=== PATIENT | male | born 1945 | race Caucasian/White ===

== ENCOUNTER → 2016-10-28 09:05 | Outpatient (CLI) | payer MEDICARE, BC ==
[2012-12-20 18:16] VITALS: BMI 29.4
[~2016-10-28 09:05] MED LIST: BACTRIM DS TABL1 TAB PO; FLEXERIL10 MG PO; FLOMAX0.4 MG PO; HYDROCHLOROTH12.5 M1 PO; NORCO 10/325 TA1 TA1 PO; PHENERGAN25 M1 PO; PREDNISONE10 MG PO; SPIRIVA18 MCG INH
== END | disposition home or self-care (01) ==
LOC: D.NM 09:05
DX: C61 Malignant neoplasm of prostate (principal)

== ENCOUNTER → 2017-03-03 09:32 | Outpatient (CLI) | payer MEDICARE, BC ==
[2012-12-20 18:16] VITALS: BMI 29.4
== END | disposition home or self-care (01) ==
LOC: D.CT 09:30
DX: C61 Malignant neoplasm of prostate (principal)

== ENCOUNTER → 2019-04-29 17:38 | Outpatient (CLI) | payer MEDICARE, BC ==
[2012-12-20 18:16] VITALS: BMI 29.4
== END | disposition home or self-care (01) ==
LOC: D.LABREF 17:38
PROVIDERS: ATTEND Orthopaedic Surgery
DX: M19.012 Primary osteoarthritis, left shoulder (principal)

== ENCOUNTER 2019-04-30 16:19 | Inpatient (IN) | payer MEDICARE, BC ==
[~2019-04-30] VITALS: Ht 170.2 cm; Wt 79.4 kg
[~2019-04-30 16:19] MED LIST changes: +CYCLOBENZAPRINE10 MG PO; -FLEXERIL10 MG PO
[2019-05-11] MEDS ORDERED: INCRUSE ELLI62.5 MCG INH (15:22)
[2019-05-11] MEDS ORDERED: [UNRECOGNIZED DRUG - OTHER] (15:37)
[2019-05-11] MEDS ORDERED: FERROUS SULFAT325 MG PO (15:37)
[2019-05-11] MEDS ORDERED: POTASSIUM99 M1 PO (15:38)
[2019-05-12 13:43] LABS: APPEARANCE CLEAR (CLEAR); BILIRUBIN NEGATIVE (NEGATIVE); COLOR DK YELLOW (YELLOW); GLUCOSE NEGATIVE (NEGATIVE); KETONE NEGATIVE (NEGATIVE); NITRITE NEGATIVE (NEGATIVE); PROTEIN TRACE mg/dL (NEGATIVE)
[2019-05-12 13:44] LABS: BACTERIA FEW /hpf (NEGATIVE); EPITHELIAL CELLS 0-5 /hpf (0-5); MUCUS >1+ /lpf (NONE SEEN); RED CELLS - URINE 0-5 /hpf (0-5); WHITE CELLS - URINE RARE /hpf (NEGATIVE)
[2019-05-21] VITALS (11 sets, daily range): BP systolic 92–128; BP diastolic 51–583; BMI 28.2; BMI 27.4
[2019-05-21 08:46] LABS: CALC OSMOLALITY 278 mosm/kg (275-300); CALCIUM 9.3 mg/dL (8.5-10.1); CARBON DIOXIDE 24.9 mmol/L (21.0-32.0); CHLORIDE - SERUM 105 mmol/L (98-107); GLUCOSE 99 mg/dL (74-106); POTASSIUM - SERUM 4.1 mmol/L (3.5-5.1); SODIUM 139 mmol/L (136-145); UREA NITROGEN 14 mg/dL (7-18); eGFR NON AFRICAN AMERICAN 77 mL/min (90-120)
[2019-05-21 08:48] LABS: INR 1.03 (0.85-1.17)
[2019-05-21 08:49] LABS: APTT 32.6 SECONDS (22.8-39.4)
[2019-05-21 09:35] LABS: BASOPHILS 0.2 % (0-2); EOSINOPHILS 2.6 % (0-7); HEMATOCRIT 33.2 % (42.0-54.0); HEMOGLOBIN 10.5 g/dL (13.5-17.5); IMMATURE GRANULOCYTES 0.2 % (0-5); LYMPHOCYTES 10.7 % (15-50); MCH 26.2 pg (26.0-34.0); MCHC 31.6 g/dL (31.0-37.0); MCV 82.8 fL (80.0-100.0); MEAN PLATELET VOLUME 8.7 fL (7.4-10.4); MONOCYTES 12.1 % (2-11); NEUTROPHILS 74.2 % (40-80); PLATELET COUNT 342 10x3/uL (130-400); RBC 4.01 10x6/uL (4.20-6.10); RDW 17.7 % (11.5-14.5); WBC 5.8 10x3/uL (4.8-10.8)
--- NOTE | 2019-05-21 11:30 | NUR ---
LEG WAS PREPED FROM HIP TO TOE
--- NOTE | 2019-05-21 13:45 | NUR ---
PT ARRIVES TO ROOM VIA BED TRANSPORTED BY RECOVERY STAFF. PT IS SLEEPY BUT AROUSABLE FOR SHORT PERIODS OF TIME. VSS. SEE FLOWSHEET. DRESSING TO LEFT KNEE IS CDI. SCD TO RIGHT LEG IS ON AND WORKING. BED ALARM IS ON AND WORKING. RESPIRATIONS ARE EVEN AND UNLABORED. PT IS AAO X 4 WHEN AROUSED. PT IS SLURRED WHEN ANSWERING QUESTIONS. INCENTIVE SPIROMETER AT BEDSIDE. BED IS IN THE LOWEST POSITION. CALL LIGHT AND BEDSIDE TABLE ARE WITHIN REACH. SIDE RAILS X 2. PT DENIES FURTHER NEEDS. FREQUENT VITALS SET UP. BED ALARM IS ON. WILL CONT TO MONITOR.
--- NOTE | 2019-05-21 18:23 | NUR ---
PT WITHOUT VOID SINCE COMING TO FLOOR FROM PROCEDURE. BLADDER SCAN SHOWS 94ML. PT TO CONTINUE TO ATTEMPT TO VOID.
--- NOTE | 2019-05-21 18:30 | NUR ---
CPM ON LEFT KNEE. PT TOLERATING WELL. BED IS IN THE LOWEST POSITION. CALL LIGHT AND BEDSIDE TABLE ARE WITHIN REACH. SIDE RAILS X 2. BED ALARM IS ON AND WORKING. PT DENIES FURTHER NEEDS. PT ENCOURAGED TO USE INCENTIVE SPRIOMETER.
--- NOTE | 2019-05-21 20:00 | NUR ---
A&O X 4, SUPINE IN BED CPM TO LEFT LEG IN USE, PT DENIES PAIN/DISCOMFORT AT THIS TIME, WILL CONTINUE TO MONITOR.
--- NOTE | 2019-05-21 22:34 | OP ---
PATIENT NAME: DARIELA COX MEDICAL RECORD: [id number] :43 LOCATION:D[address] [id number] ADMISSION DATE:05/21/19 SURGEON: SONY PEREZ DO DATE OF OPERATION: 05/21/2019 PROCEDURE PERFORMED: Left total knee arthroplasty. PREOPERATIVE DIAGNOSIS: Severe jwca-xn-udee left knee osteoarthritis. POSTOPERATIVE DIAGNOSIS: Severe tlrb-gt-duhv left knee osteoarthritis. INDICATIONS: Mr. Cox is a 73-year-old male who has tried all manner of nonoperative treatment including injections for his knee pain and he got tired of dealing with it as it has affected his activities of daily living and he was informed of the risks including infection, bleeding, damage to nerves or vessels, need for further surgery, failure of the implant, continued knee pain, fracture, mechanical failure, bleeding, blood clots, and even . He signed a consent. SURGEON: Sony Perez DO DESCRIPTION OF PROCEDURE: The patient was taken to the operative suite, after given a block by anesthesia in the preoperative area, he was laid in the supine position, given general anesthetic and LMA was placed. Two grams Ancef and 80 mg gentamicin and 1 gram of TXA was given to the patient. The left lower extremity was then prepped and draped in sterile fashion. Timeout was performed and everybody was in agreeance as to the correct side, site, patient, and procedure and then marked out an incision on the anterior knee, covered with Ioban. Careful dissection was made down through the incision to the capsule. The capsule was then opened with a medial parapatellar approach. Part of the fat pad was removed and the patella was milled down to fit a prosthesis and the knee was then flexed up and the femoral canal was entered with a drill and the distal femur was cut. Once the distal femur was cut, the proximal tibia was exposed and cut and this was removed. This knee was then brought to extension with lamina labor crew supervisor and [employer]ock used to remove any excess bone and the menisci medially and laterally. The knee was then flexed up after that and #10 extension block fit very easily. The knee was then flexed up and the femur was measured to be #60. 4-in-1 cutting block was then used, an angela wing was ensured no notching and the chamfer cuts were made on the femur. The trial was then put on the patella and it was floated and ranged and rotation was marked. I then drilled the lug holes for the femur and the holes for the patella. We then exposed the tibia and put in a 71 tray. This was reamed and punched and extra holes put in the tibia for the cement. Cement was then mixed. Tibia had been irrigated. Cement was placed on the tibia and on the implant, impacted into place. Excess cement was removed. The femur was then impacted on, once the femur was impacted on, the poly was put in between, the knee was brought to extension and the holes of the patella were cleaned out and it was put on the implant, it was squeezed and held into place. We then irrigated the knee and then the Betadine, povidone-iodine solution was poured in the knee and set for 3 minutes, the cement dried. Once the cement was dried, the knee was irrigated again with a liter and a half of normal saline. I then sized the poly up to an #18. This had good balance medial and lateral varus and valgus stability and flexion and extension. The tobramycin and vancomycin powder were then put in as well as Flavia and the patient was given another gram of TXA. OPERATIVE REPORT [id number] DARIELA COX The capsule was then closed with #2 Ethibond in a znlclf-pd-ckgbz fashion. Skin was closed with 2-0 Vicryl in an inverted interrupted fashion and ZipLine placed on the knee. This was covered with Adaptic, 4 x 4s, ABD, Webril, Martin wrap, and ETHEL hose stocking placed up to the knee. The patient was awakened and taken to the recovery again in stable condition. Blood loss was approximately 200 mL. COMPLICATIONS: None. TRANSINT:[id number] Voice Confirmation ID: [id number] DOCUMENT ID: [id number] SONY PEREZ DO at 2239 CC: [id number] DICTATION DATE: 05/21/19 1251 LACE FINISHER: 05/21/19 2220 ADM IN [facility] [place] [id number] [place] [address]
[2019-05-22] VITALS: BP 101/63
--- NOTE | 2019-05-22 01:59 | NUR ---
I have reviewed this patient and I concur with the Shift Assessment completed by the Licensed Practical Nurse today this shift.
[2019-05-22 04:00] VITALS: BP 110/60
[2019-05-22 06:33] LABS: BASOPHILS 0 % (0-2); EOSINOPHILS 0 % (0-7); HEMATOCRIT 30.2 % (42.0-54.0); HEMOGLOBIN 9.5 g/dL (13.5-17.5); IMMATURE GRANULOCYTES 0.2 % (0-5); LYMPHOCYTES 3.2 % (15-50); MCH 26.2 pg (26.0-34.0); MCHC 31.5 g/dL (31.0-37.0); MCV 83.4 fL (80.0-100.0); MEAN PLATELET VOLUME 8.8 fL (7.4-10.4); MONOCYTES 9.1 % (2-11); NEUTROPHILS 87.5 % (40-80); PLATELET COUNT 303 10x3/uL (130-400); RBC 3.62 10x6/uL (4.20-6.10); RDW 17.7 % (11.5-14.5)
[2019-05-22 06:48] LABS: WBC 10.4 10x3/uL (4.8-10.8)
[2019-05-22 07:18] LABS: ALBUMIN 3.2 g/dL (3.4-5.0); ALKALINE PHOSPHATASE 59 U/L (46-116); ALT (SGPT) 18 U/L (10-68); BILIRUBIN - TOTAL 0.17 mg/dL (0.2-1.3); CALC OSMOLALITY 277 mosm/kg (275-300); CALCIUM 8.4 mg/dL (8.5-10.1); CARBON DIOXIDE 23.5 mmol/L (21.0-32.0); CHLORIDE - SERUM 104 mmol/L (98-107); GLUCOSE 125 mg/dL (74-106); POTASSIUM - SERUM 4.4 mmol/L (3.5-5.1); PROTEIN - SERUM 6.7 g/dL (6.4-8.2); SODIUM 138 mmol/L (136-145); UREA NITROGEN 15 mg/dL (7-18); eGFR NON AFRICAN AMERICAN 77 mL/min (90-120)
[2019-05-22 09:01] VITALS: BP 104/61
[2019-05-22 12:48] VITALS: Ht 170.2 cm; Wt 79.4 kg
[2019-05-22 13:02] VITALS: BP 103/69
--- NOTE | 2019-05-22 14:27 | NUR ---
PT REPORTING RESTING PAIN OF 1/10. INCREASES TO 7/10 WITH MOVEMENT.
[2019-05-22 16:49] VITALS: BP 161/98
[2019-05-22 20:00] VITALS: BP 145/63
[2019-05-23] VITALS: BP 131/77
--- NOTE | 2019-05-23 01:09 | NUR ---
WATHCING TV QUEITLY WITH NO DISTRESS NOTED.RESP UNALBORED WITH CLIGHT IN REACH. NO COMPLAINTS BVOICED. CL INR EACH
--- NOTE | 2019-05-23 03:42 | NUR ---
I have reviewed this patient and I concur with the Shift Assessment completed by the Licensed Practical Nurse today this shift.
[2019-05-23 04:00] VITALS: BP 109/68
[2019-05-23 06:15] LABS: ALBUMIN 2.6 g/dL (3.4-5.0); ALKALINE PHOSPHATASE 49 U/L (46-116); ALT (SGPT) 14 U/L (10-68); CALC OSMOLALITY 276 mosm/kg (275-300); CALCIUM 7.9 mg/dL (8.5-10.1); CARBON DIOXIDE 22.4 mmol/L (21.0-32.0); CHLORIDE - SERUM 106 mmol/L (98-107); CREATININE - SERUM 0.9 mg/dL (0.6-1.3); GLUCOSE 97 mg/dL (74-106); POTASSIUM - SERUM 3.9 mmol/L (3.5-5.1); SODIUM 138 mmol/L (136-145); UREA NITROGEN 14 mg/dL (7-18); eGFR NON AFRICAN AMERICAN 87 mL/min (90-120)
[2019-05-23 06:20] LABS: BASOPHILS 0.1 % (0-2); EOSINOPHILS 0.3 % (0-7); HEMATOCRIT 26.6 % (42.0-54.0); HEMOGLOBIN 8.2 g/dL (13.5-17.5); IMMATURE GRANULOCYTES 0.3 % (0-5); LYMPHOCYTES 5.6 % (15-50); MCH 25.6 pg (26.0-34.0); MCHC 30.8 g/dL (31.0-37.0); MCV 83.1 fL (80.0-100.0); MEAN PLATELET VOLUME 8.8 fL (7.4-10.4); MONOCYTES 13.7 % (2-11); PLATELET COUNT 310 10x3/uL (130-400); RDW 17.8 % (11.5-14.5); WBC 8.6 10x3/uL (4.8-10.8)
--- NOTE | 2019-05-23 07:13 | NUR ---
PATIENT WATCHING TV THIS AM WITH CPM MACHINE ON, TO BE TAKEN OFF AT 0845. IV TO THE LEFT AC IS SALINE LOCKED. 1 LPM OF O2 IS NOTED. PATIENT WITH NO COMPLAINTS OF PAIN AT THIS TIME. BED IS IN LOW POSITION AND CALL LIGHT IS IN REACH. PT WITH NO NEEDS AT THIS TIME
[2019-05-23 08:42] VITALS: BP 136/77
[2019-05-23 13:44] VITALS: BP 151/87
[2019-05-23 17:48] VITALS: BP 142/56
[2019-05-23 19:30] VITALS: BP 98/63
--- NOTE | 2019-05-23 20:00 | NUR ---
LYING IN BED. ALERT AND ORIENTED X4. C/O PAIN IN RT KNEE RATING 5. CPM ON AT THIS TIME. DRSG TO LT KNEE IS C/D/I. ETHEL HOSE IN USE BILAT. RESP EVEN AND NONLABORED. O2 @ 2LNC. ENCOURAGED USE OF I.S. SON AT BEDSIDE. REQUESTS PAIN MED. SR ELEVATED X2. CL IN REACH.
--- NOTE | 2019-05-23 20:10 | NUR ---
MEDICATED WITH ULTRAM FOR C/O PAIN IN LT KNEE. CL IN REACH.
[2019-05-24 00:30] VITALS: BP 102/66
--- NOTE | 2019-05-24 01:26 | NUR ---
RESTING IN BED WITH EYES CLOSED. RESP EVEN AND NONLABORED. NO DISTRESS. CL IN REACH.
[2019-05-24 05:01] VITALS: BP 100/64
[2019-05-24 05:25] LABS: BASOPHILS 0.1 % (0-2); EOSINOPHILS 0.9 % (0-7); HEMATOCRIT 25.3 % (42.0-54.0); HEMOGLOBIN 7.9 g/dL (13.5-17.5); IMMATURE GRANULOCYTES 0.1 % (0-5); LYMPHOCYTES 6.1 % (15-50); MCH 25.7 pg (26.0-34.0); MCHC 31.2 g/dL (31.0-37.0); MCV 82.4 fL (80.0-100.0); MEAN PLATELET VOLUME 8.8 fL (7.4-10.4); MONOCYTES 15.1 % (2-11); NEUTROPHILS 77.7 % (40-80); PLATELET COUNT 321 10x3/uL (130-400); RBC 3.07 10x6/uL (4.20-6.10); WBC 7.4 10x3/uL (4.8-10.8)
[2019-05-24 06:05] LABS: ALBUMIN 2.6 g/dL (3.4-5.0); ALKALINE PHOSPHATASE 58 U/L (46-116); ALT (SGPT) 15 U/L (10-68); BILIRUBIN - TOTAL 0.35 mg/dL (0.2-1.3); CALC OSMOLALITY 277 mosm/kg (275-300); CALCIUM 7.9 mg/dL (8.5-10.1); CARBON DIOXIDE 23.8 mmol/L (21.0-32.0); CHLORIDE - SERUM 106 mmol/L (98-107); CREATININE - SERUM 0.9 mg/dL (0.6-1.3); GLUCOSE 95 mg/dL (74-106); POTASSIUM - SERUM 3.4 mmol/L (3.5-5.1); SODIUM 140 mmol/L (136-145); UREA NITROGEN 10 mg/dL (7-18); eGFR NON AFRICAN AMERICAN 87 mL/min (90-120)
[2019-05-24 08:05] VITALS: BP 110/73
[2019-05-24] MEDS ORDERED: DILAUDID4 MG PO (08:20)
[2019-05-24] MEDS ORDERED: VISTARIL50 MG PO (08:20)
[2019-05-24] MEDS ORDERED: BAYER CHEWABLE81 MG PO (08:21)
[2019-05-24] MEDS ORDERED: FERROUS SULFAT325 MG PO (08:21)
[2019-05-24] MEDS ORDERED: KEFLEX500 MG PO (08:21)
--- NOTE | 2019-05-24 09:38 | NUR ---
PT SITTING UP IN CHAIR AT BEDSIDE. RESP EVEN AND UNLABORED. DENIES PAIN AT THIS TIME. DRESSING TO LEFT LOWER EXTREMITY C/D/I, ETHEL HOSE ON BILATERALLY. SALINE LOC TO LEFT AC. SITE WITHOUT REDNESS OR EDEMA. DENIES FURTHER NEEDS AT THIS TIME. CL WITHIN REACH. ENCOURAGED TO CALL WITH NEEDS. CONTINUE POC
--- NOTE | 2019-05-24 12:39 | MORECARE ---
CASE MANAGEMENT DISCHARGE SUMMARY PATIENT: DARIELA ANTHONY UNIT: [id number] ADM DATE: 05/21/19 AGE: 74 : 44 SEX: M ROOM/BED: D.2209 AUTHOR: DAVINA AUSTIN PHYSICIAN: REFERRING PHYSICIAN: JHONNY PEREZ DO DATE OF SERVICE: 05/24/19 Discharge Plan Patient Name: DARIELA ANTHONY [facility] [facility] 1945 Planned Disposition: Home Health Service Anticipated Discharge Date: Discharge Date: Expected LOS: Initial Reviewer: [email or web address] Initial Review Date: 05/21/2019 Generated: 05/24/19 1:38 pm DCPIA - Discharge Planning Initial Assessment Updated by [email or web address]: Becki Jean on 05/24/19 12:35 pm * Is the patient Alert and Oriented? Yes * How many steps to enter\exit or inside your home? * PCP MARLENE * Pharmacy [facility] * Preadmission Environment Home Alone * ADLs Independent * Equipment Cane Rolling Walker Walker * Other Equipment CPM ICE MACHINE * List name and contact numbers for known caregivers / representatives who currently or will assist patient after discharge: SABINE ANTHONY (SON) [phone] * Verbal permission to speak to the caregivers and representatives has been obtained from the patient. N/A * Community resources currently utilized None * Additional services required to return to the preadmission environment? Yes * Has this patient been hospitalized within the prior 30 days at any hospital? No Patient Name: DARIELA ANTHONY Page 00130 at 1239 All edits/amendments must be made on the electronic document DICTATION DATE: 05/24/19 1238 BARGE ENGINEER: VERONICA 05/24/19 1238 RPT#: [id number] DC DATE: STATUS: ADM IN [facility] [address] [place] [address] END OF REPORT
[2019-05-24 12:45] VITALS: BP 116/79
--- NOTE | 2019-05-24 12:46 | MORECARE ---
CASE MANAGEMENT DISCHARGE SUMMARY PATIENT: DARIELA ANTHONY UNIT: [id number] ADM DATE: 05/21/19 AGE: 74 : 44 SEX: M ROOM/BED: D.2209 AUTHOR: DAVINA AUSTIN PHYSICIAN: REFERRING PHYSICIAN: JHONNY PEREZ DO DATE OF SERVICE: 05/24/19 Discharge Plan Patient Name: DARIELA ANTHONY Facility: [facility]:[place] : 1945 Planned Disposition: Home Health Service Anticipated Discharge Date: Discharge Date: Expected LOS: Initial Reviewer: [email or web address] Initial Review Date: 05/21/2019 Generated: 05/24/19 1:46 pm Comments DCP- Discharge Planning Updated by [email or web address]: Becki Jean on 05/24/19 11:[address] Patient Name: DARIELA ANTHONY Admission Status: Elective Accout number: [id number] Admission Date: 05-21-2019 : 1945 Admission Diagnosis: Attending: JHONNY PEREZ Current LOS: 3 Anticipated DC Date: Planned Disposition: Home Health Service Primary Insurance: MEDICARE A & B Discharge Planning Comments: CM met with patient to complete initial dc planning assessment. CM educated patient on the CM role and verbal consent given by patient to complete assessment. Patient lives at home by himself where he was independent with his care. At discharge patient is unsure on where he will do his rehab. Home with home health or inpatient rehab. CM discussed availability of home health, rehab services, and medical equipment. He has a walker, CPM, BSC, ice machine that was set up by Dr ePrez's office. IMM served and explained. Patient denied known discharge needs at this time. CM will continue to follow and will assist as needed with dc plans/needs. Flask Pusher: Becki Jean DCPIA - Discharge Planning Initial Assessment Updated by [email or web address]: Becki Jean on 05/24/19 12:35 pm * Is the patient Alert and Oriented? Yes * How many steps to enter\exit or inside your home? * PCP MARLENE * Pharmacy [facility] [address] * Preadmission Environment Home Alone * ADLs Independent * Equipment Cane Rolling Walker Walker * Other Equipment CPM ICE MACHINE * List name and contact numbers for known caregivers / representatives who currently or will assist patient after discharge: SABINE ANTHONY (SON) [phone] * Verbal permission to speak to the caregivers and representatives has been obtained from the patient. N/A * Community resources currently utilized None * Additional services required to return to the preadmission environment? Yes * Has this patient been hospitalized within the prior 30 days at any hospital? No Coverage Notice Reviewer: [email or web address] Khalida Jean Notice Issued Date-Time: 05/24/2019 12:30 Notice Type: IM Discharge Notice Notice Delivered To: Patient Relationship to Patient: Cooker Process Cheese Name: Delivery Method: HAND - Hand Delivered Lucita Days: Prior Verbal Notification: Recipient Understood Notice: Yes Recipient Signature: Yes Med Rec Note Co-signed by Attending: Coverage Notice Comment: Last DP export: 05/24/19 11:39 Patient Name: DARIELA ANTHONY Page [id number] at 1246 All edits/amendments must be made on the electronic document DICTATION DATE: 05/24/19 1246 GREASER HELPER: VERONICA 05/24/19 1246 RPT#: [id number] DC DATE: STATUS: ADM IN [facility] [address] [place] [address] END OF REPORT
--- NOTE | 2019-05-24 14:15 | MORECARE ---
CASE MANAGEMENT DISCHARGE SUMMARY PATIENT: DARIELA ANTHONY UNIT: [id number] ADM DATE: 05/21/19 AGE: 74 : 44 SEX: M ROOM/BED: D.2209 AUTHOR: DAVINA AUSTIN PHYSICIAN: REFERRING PHYSICIAN: JHONNY PEREZ DO DATE OF SERVICE: 05/24/19 Discharge Plan Patient Name: DARIELA ANTHONY Facility: [facility]:[place] : 1945 Planned Disposition: Home Health Service Anticipated Discharge Date: Discharge Date: Expected LOS: Initial Reviewer: [email or web address] Initial Review Date: 05/21/2019 Generated: 05/24/19 3:15 pm Comments DCP- Discharge Planning Updated by [email or web address]: Becki Jean on 05/24/19 1:[address] PATIENT WOULD LIKE TO [facility] [place] [facility]. I WILL SEND REFERRAL TO [facility]. CORINNA KRAMER WILL BE HERE AT 1530 TO PICK HIM UP. HE HAS ALL DME. PATIENT'S IS [address] IN [facility] CM WILL CONTINUE TO FOLLOW AND ASSIST WITH DC PLANNING DCP- Discharge Planning Updated by [email or web address]: Becki Jean on 05/24/19 11:[address] Patient Name: DARIELA ANTHONY Admission Status: Elective Accout number: [id number] Admission Date: 05-21-2019 : 1945 Admission Diagnosis: Attending: JHONNY PEREZ Current LOS: 3 Anticipated DC Date: Planned Disposition: Home Health Service Primary Insurance: MEDICARE A & B Discharge Planning Comments: CM met with patient to complete initial dc planning assessment. CM educated patient on the CM role and verbal consent given by patient to complete assessment. Patient lives at home by himself where he was independent with his care. At discharge patient is unsure on where he will do his rehab. Home with home health or inpatient rehab. CM discussed availability of home health, rehab services, and medical equipment. He has a walker, CPM, BSC, ice machine that was set up by Dr Perez's office. IMM served and explained. Patient denied known discharge needs at this time. CM will continue to follow and will assist as needed with dc plans/needs. Provider Enrollment Specialist: Becki Jean DCPIA - Discharge Planning Initial Assessment Updated by [email or web address]: Becki Jean on 05/24/19 12:35 pm * Is the patient Alert and Oriented? Yes * How many steps to enter\exit or inside your home? * PCP MARLENE * Pharmacy [facility] [address] * Preadmission Environment Home Alone * ADLs Independent * Equipment Cane Rolling Walker Walker * Other Equipment CPM ICE MACHINE * List name and contact numbers for known caregivers / representatives who currently or will assist patient after discharge: SABINE ANTHONY (SON) [phone] * Verbal permission to speak to the caregivers and representatives has been obtained from the patient. N/A * Community resources currently utilized None * Additional services required to return to the preadmission environment? Yes * Has this patient been hospitalized within the prior 30 days at any hospital? No Coverage Notice Reviewer: [id number] - Becki Jean Notice Issued Date-Time: 05/24/2019 12:30 Notice Type: IM Discharge Notice Notice Delivered To: Patient Relationship to Patient: Vegetable Farming Supervisor Name: Delivery Method: HAND - Hand Delivered Lucita Days: Prior Verbal Notification: Recipient Understood Notice: Yes Recipient Signature: Yes Med Rec Note Co-signed by Attending: Coverage Notice Comment: Last DP export: 05/24/19 11:46 Patient Name: DARIELA ANTHONY Page [id number] at 1415 All edits/amendments must be made on the electronic document DICTATION DATE: 05/24/191414 BILLING COLLECTIONS SPECIALIST: VERONICA 05/24/19 1415 RPT#: [id number] HI DATE: STATUS: ADM IN [facility] [address] [place] [address] END OF REPORT
--- NOTE | 2019-05-24 14:25 | MORECARE ---
CASE MANAGEMENT DISCHARGE SUMMARY PATIENT: DARIELA ANTHONY UNIT: [id number] ADM DATE: 05/21/19 AGE: 74 : 44 SEX: M ROOM/BED: D.2209 AUTHOR: DAVINA AUSTIN PHYSICIAN: REFERRING PHYSICIAN: JHONNY PEREZ DO DATE OF SERVICE: 05/24/19 Discharge Plan Patient Name: DARIELA ANTHONY Facility: [facility]:[place] : 1945 Planned Disposition: Home Health Service Anticipated Discharge Date: Discharge Date: Expected LOS: Initial Reviewer: [email or web address] Initial Review Date: 05/21/2019 Generated: 05/24/19 3:24 pm Comments DCP- Discharge Planning Updated by [email or web address]: Becki Jean on 05/24/19 1:[address] PATIENT WOULD LIKE TO [facility] [place] [facility]. I WILL SEND REFERRAL TO [facility]. CORINNA KRAMER WILL BE HERE AT 1530 TO PICK HIM UP. HE HAS ALL DME. PATIENT'S IS [address] IN [facility] CM WILL CONTINUE TO FOLLOW AND ASSIST WITH DC PLANNING DCP- Discharge Planning Updated by [id number]: Becki Jean on 05/24/19 11:[address] Patient Name: DARIELA ANTHONY Admission Status: Elective Accout number: [id number] Admission Date: 05-21-2019 : 1945 Admission Diagnosis: Attending: JHONNY PEREZ Current LOS: 3 Anticipated DC Date: Planned Disposition: Home Health Service Primary Insurance: MEDICARE A & B Discharge Planning Comments: CM met with patient to complete initial dc planning assessment. CM educated patient on the CM role and verbal consent given by patient to complete assessment. Patient lives at home by himself where he was independent with his care. At discharge patient is unsure on where he will do his rehab. Home with home health or inpatient rehab. CM discussed availability of home health, rehab services, and medical equipment. He has a walker, CPM, BSC, ice machine that was set up by Dr Perez's office. IMM served and explained. Patient denied known discharge needs at this time. CM will continue to follow and will assist as needed with dc plans/needs. Fixed Income Trading Vice President: Becki Jean DCPIA - Discharge Planning Initial Assessment Updated by [email or web address]: Becki Jean on 05/24/19 12:35 pm * Is the patient Alert and Oriented? Yes * How many steps to enter\exit or inside your home? * PCP MARLENE * Pharmacy [facility] [address] * Preadmission Environment Home Alone * ADLs Independent * Equipment Cane Rolling Walker Walker * Other Equipment CPM ICE MACHINE * List name and contact numbers for known caregivers / representatives who currently or will assist patient after discharge: SABINE ANTHONY (SON) [phone] * Verbal permission to speak to the caregivers and representatives has been obtained from the patient. N/A * Community resources currently utilized None * Additional services required to return to the preadmission environment? Yes * Has this patient been hospitalized within the prior 30 days at any hospital? No External Providers [facility] Next Contact Date: Service Request Date: Service Type: Resolution: Reviewer: Comments: Coverage Notice Reviewer: [email or web address] Khalida Jean Notice Issued Date-Time: 05/24/2019 12:30 Notice Type: IM Discharge Notice Notice Delivered To: Patient Relationship to Patient: Vice President Network Name: Delivery Method: HAND - Hand Delivered Lucita Days: Prior Verbal Notification: Recipient Understood Notice: Yes Recipient Signature: Yes Med Rec Note Co-signed by Attending: Coverage Notice Comment: Reviewer: [email or web address] Khalida Jean Notice Issued Date-Time: 05/24/2019 12:30 Notice Type: Patient Choice Letter Notice Delivered To: Patient Relationship to Patient: Vice President Network Name: Delivery Method: HAND - Hand Delivered Lucita Days: Prior Verbal Notification: Recipient Understood Notice: Yes Recipient Signature: Yes Med Rec Note Co-signed by Attending: Coverage Notice Comment: Last DP export: 05/24/19 1:15 Patient Name: DARIELA ANTHONY Page [phone] at 1428 All edits/amendments must be made on the electronic document DICTATION DATE: 05/24/191423 LADLE REPAIRMAN: VERONICA 05/24/191423 RPT#: [id number] DC DATE: STATUS: ADM IN [facility] [address] [place] [address] END OF REPORT
--- NOTE | 2019-05-24 15:30 | NUR ---
DISCHARGE PAPERWORK PROVIDED TO PT. DISCUSSED FOLLOW UP APPT, INCISION CARE, AND PRESCRIBED MEDICATIONS. DISCUSSED HOME HEALTH WITH [facility]. PT AND FAMILY DENY QUESTIONS AT THIS TIME. IV DISCONTINUED FROM LEFT AC, CATH INTACT. PT TAKEN OUT VIA W/C TO PERSONAL VEHICLE WITH ALL PERSONAL BELONGINGS.
--- NOTE | 2019-05-25 07:29 | MORECARE ---
CASE MANAGEMENT DISCHARGE SUMMARY PATIENT: DARIELA ANTHONY UNIT: [id number] ADM DATE: 05/21/19 AGE: 74 : 44 SEX: M ROOM/BED: D.2209 AUTHOR: DAVINA AUSTIN PHYSICIAN: REFERRING PHYSICIAN: HJONNY PEREZ DO DATE OF SERVICE: 05/25/19 Discharge Plan Patient Name: DARIELA ANTHONY Facility: [facility]:[place] : 1945 Planned Disposition: Home Health Service Anticipated Discharge Date: Discharge Date: 05/24/2019 Expected LOS: 0 Initial Reviewer: [email or web address] Initial Review Date: 05/21/2019 Generated: 05/25/19 8:29 am Comments DCP- Discharge Planning Updated by [email or web address]: Becki Jean on 05/24/19 1:[address] PATIENT WOULD LIKE TO [facility] [place] WITH [facility]. I WILL SEND REFERRAL TO [facility]. CORINNA KRAMER WILL BE HERE AT 1530 TO PICK HIM UP. HE HAS ALL DME. PATIENT'S IS [address] IN [facility] CM WILL CONTINUE TO FOLLOW AND ASSIST WITH DC PLANNING DCP- Discharge Planning Updated by [email or web address]: Becki Jean on 05/24/19 11:[address] Patient Name: DARIELA ANTHONY Admission Status: Elective Accout number: [id number] Admission Date: 05-21-2019 : 1945 Admission Diagnosis: Attending: JHONNY PEREZ Current LOS: 3 Anticipated DC Date: Planned Disposition: Home Health Service Primary Insurance: MEDICARE A & B Discharge Planning Comments: CM met with patient to complete initial dc planning assessment. CM educated patient on the CM role and verbal consent given by patient to complete assessment. Patient lives at home by himself where he was independent with his care. At discharge patient is unsure on where he will do his rehab. Home with home health or inpatient rehab. CM discussed availability of home health, rehab services, and medical equipment. He has a walker, CPM, BSC, ice machine that was set up by Dr Perez's office. IMM served and explained. Patient denied known discharge needs at this time. CM will continue to follow and will assist as needed with dc plans/needs. Traffic Warehouse Supervisor: Becki Jean DCPIA - Discharge Planning Initial Assessment Updated by [email or web address]: Becki Jean on 05/24/19 12:35 pm * Is the patient Alert and Oriented? Yes * How many steps to enter\exit or inside your home? * PCP MARLENE * Pharmacy [facility] [address] * Preadmission Environment Home Alone * ADLs Independent * Equipment Cane Rolling Walker Walker * Other Equipment CPM ICE MACHINE * List name and contact numbers for known caregivers / representatives who currently or will assist patient after discharge: SABINE ANTHONY (SON) [phone] * Verbal permission to speak to the caregivers and representatives has been obtained from the patient. N/A * Community resources currently utilized None * Additional services required to return to the preadmission environment? Yes * Has this patient been hospitalized within the prior 30 days at any hospital? No Coverage Notice Reviewer: [id number] Khalida Jean Notice Issued Date-Time: 05/24/2019 12:30 Notice Type: IM Discharge Notice Notice Delivered To: Patient Relationship to Patient: Graphics Artist Name: Delivery Method: HAND - Hand Delivered Lucita Days: Prior Verbal Notification: Recipient Understood Notice: Yes Recipient Signature: Yes Med Rec Note Co-signed by Attending: Coverage Notice Comment: Reviewer: [email or web address] Khalida Jean Notice Issued Date-Time: 05/24/2019 12:30 Notice Type: Patient Choice Letter Notice Delivered To: Patient Relationship to Patient: Graphics Artist Name: Delivery Method: HAND - Hand Delivered Lucita Days: Prior Verbal Notification: Recipient Understood Notice: Yes Recipient Signature: Yes Med Rec Note Co-signed by Attending: Coverage Notice Comment: Last DP export: 05/24/19 1:25 Patient Name: DARIELA ANTHONY Page 11939 at 0729 All edits/amendments must be made on the electronic document DICTATION DATE: 05/25/19728 SQUEEGEE TENDER: VERONICA 05/25/19728 RPT#: [id number] DC DATE:05/24/19 STATUS: DIS IN [facility] [address] [place] [address] END OF REPORT
== END 2019-05-24 15:31 | disposition home health service (06) | DRG 470 ==
LOC: D.MS 05-21 07:20 → D.SDCHOLD 05-21 07:20 → D.MS 05-21 13:08
PROVIDERS: Internal Medicine Nephrology; ADMIT Orthopaedic Surgery; ATTEND Orthopaedic Surgery
PROC: 0SRD0J9 Replacement of Left Knee Joint with Synthetic Substitute, Cemented, Open Approach (ICD-10-PCS; principal; 2019-05-21 08:45)
DX: M17.12 Unilateral primary osteoarthritis, left knee (principal); D62 Acute posthemorrhagic anemia; F17.203 Nicotine dependence unspecified, with withdrawal; I10 Essential (primary) hypertension; N40.0 Benign prostatic hyperplasia without lower urinary tract symptoms; Z85.820 Personal history of malignant melanoma of skin; D50.9 Iron deficiency anemia, unspecified

== ENCOUNTER 2019-07-09 14:51 | Inpatient (IN) | payer MEDICARE, BC ==
[~2019-07-09] VITALS: Ht 170.2 cm; Wt 77.1 kg
[~2019-07-09 14:51] MED LIST changes: +BAYER CHEWABLE81 MG PO; +DILAUDID4 MG PO; +FERROUS SULFAT325 MG PO; +INCRUSE ELLI62.5 MCG INH; +KEFLEX500 MG PO; +POTASSIUM99 M1 PO; +VISTARIL50 MG PO; +[UNRECOGNIZED DRUG - OTHER]
[2019-07-26] MEDS ORDERED: FERROUS SULFAT325 MG PO (10:54)
[2019-07-26 12:21] LABS: BASOPHILS 0.2 % (0-2); EOSINOPHILS 2.1 % (0-7); HEMATOCRIT 37.7 % (42.0-54.0); HEMOGLOBIN 12.1 g/dL (13.5-17.5); IMMATURE GRANULOCYTES 0.3 % (0-5); LYMPHOCYTES 13.6 % (15-50); MCH 27.9 pg (26.0-34.0); MCHC 32.1 g/dL (31.0-37.0); MCV 87.1 fL (80.0-100.0); MEAN PLATELET VOLUME 8.8 fL (7.4-10.4); MONOCYTES 12.7 % (2-11); NEUTROPHILS 71.1 % (40-80); PLATELET COUNT 290 10x3/uL (130-400); RBC 4.33 10x6/uL (4.20-6.10); RDW 20.4 % (11.5-14.5); WBC 6.1 10x3/uL (4.8-10.8)
[2019-07-26 12:29] LABS: CALC OSMOLALITY 279 mosm/kg (275-300); CALCIUM 9.2 mg/dL (8.5-10.1); CARBON DIOXIDE 26.9 mmol/L (21.0-32.0); CHLORIDE - SERUM 103 mmol/L (98-107); CREATININE - SERUM 0.9 mg/dL (0.6-1.3); GLUCOSE 103 mg/dL (74-106); POTASSIUM - SERUM 3.9 mmol/L (3.5-5.1); SODIUM 139 mmol/L (136-145); UREA NITROGEN 19 mg/dL (7-18); eGFR NON AFRICAN AMERICAN 87 mL/min (90-120)
[2019-07-26 12:38] LABS: APTT 28.8 SECONDS (22.8-39.4); INR 0.94 (0.85-1.17); PROTIME 12.5 SECONDS (11.6-15.0)
[2019-07-26 13:31] LABS: BACTERIA FEW /hpf (NEGATIVE); BILIRUBIN NEGATIVE (NEGATIVE); EPITHELIAL CELLS RARE /hpf (0-5); GLUCOSE NEGATIVE (NEGATIVE); KETONE NEGATIVE (NEGATIVE); NITRITE NEGATIVE (NEGATIVE); UROBILINOGEN NORMAL (NORMAL); WHITE CELLS - URINE OCC /hpf (NEGATIVE)
[2019-07-27] VITALS (7 sets, daily range): BP systolic 90–134; BP diastolic 54–89; BMI 26.7
--- NOTE | 2019-07-27 13:48 | MORECARE ---
CASE MANAGEMENT DISCHARGE SUMMARY PATIENT: DARIELA ANTHONY UNIT: [id number] ADM DATE: 07/27/19 AGE: 74 : 44 SEX: M ROOM/BED: D.1212 AUTHOR: DAVINA AUSTIN PHYSICIAN: REFERRING PHYSICIAN: JHONNY PEREZ DO DATE OF SERVICE: 07/27/19 Discharge Plan Patient Name: DARIELA ANTHONY Facility: [facility]:[place] : 1945 Planned Disposition: Home with Home Health Anticipated Discharge Date: Discharge Date: Expected LOS: Initial Reviewer: [id number] Initial Review Date: 07/27/2019 Generated: 07/27/19 2:47 pm Comments DCP- Discharge Planning Updated by [email or web address]: Alexandra Brambila on 07/27/19 12:[address] CM met with patient to discuss initial discharge planning. Patient is in agreement to proceed with the assessment. Patient reports that he lives at home independently, alone. Patient is alert/oriented. Stairs/steps: 1. PCP: Dr. Kendra Weller. Pharmacy: [facility]. Patient states he has been able to obtain all of his prescribed medications. HHS: [facility]. DME: CPM, Michael Cote, BSC with rails. Patient gives permission to speak with family members/care givers. Emergency contact: Woody anthony (son) [phone]. 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 CM discussed the availability of HH, Rehab, DME services. Patient wishes to use [facility] after his discharge.Patient feels safe returning to previous environment and will help in the home for the first 4 weeks, from [facility]. Patient denies being hospitalized within the past 30 days. Patient denies the use of community resources ADOPTION WORKER. Transportation at time of discharge: [facility] or [employer]. CM will assist PRN with additional DC needs/plans. DCPIA - Discharge Planning Initial Assessment Updated by [email or web address]: Alexandra Brambila on 07/27/19 1:44 pm * Is the patient Alert and Oriented? Yes * How many steps to enter\exit or inside your home? * PCP Dr. Tony Gardner * [facility] * Preadmission Environment Home Alone * ADLs Independent * Equipment Walker * Other Equipment Walker, BSC w/rails, cane, CPM * List name and contact numbers for known caregivers / representatives who currently or will assist patient after discharge: Woody Anthony (son) [phone] * Verbal permission to speak to the caregivers and representatives has been obtained from the patient. Yes * Community resources currently utilized Home Health * Please name any agencies selected above. [facility] * Additional services required to return to the preadmission environment? Yes * Can the patient safely return to the preadmission environment? Yes * Has this patient been hospitalized within the prior 30 days at any hospital? No Coverage Notice Reviewer: [id number] Khalida Brambila Notice Issued Date-Time: 07/27/2019 13:23 Notice Type: Patient Choice Letter Notice Delivered To: Patient Relationship to Patient: Self Photography Editor Name: Dariela Anthony Delivery Method: HAND - Hand Delivered Lucita Days: Prior Verbal Notification: Recipient Understood Notice: Yes Recipient Signature: Yes Med Rec Note Co-signed by Attending: Coverage Notice Comment: Patient Choice for [facility]. Patient Name: DARIELA ANTHONY Page [phone] at 1348 All edits/amendments must be made on the electronic document DICTATION DATE: 07/27/19 1347 MASS SPECTROMETRY MANAGER: VERONICA 07/27/19 1347 RPT#: [id number] DC DATE: STATUS: ADM IN [facility] [address] [place] [address] END OF REPORT
[2019-07-27 16:42] LABS: IRON 88 ug/dl (35-150); UNSAT IRON BIND CAPACITY 179 ug/dl (150-375)
[2019-07-27 16:43] LABS: % SATURATION 32 % (15-55); TOTAL IRON BIND CAPACITY 267 ug/dl (260-445)
--- NOTE | 2019-07-27 17:16 | MORECARE ---
CASE MANAGEMENT DISCHARGE SUMMARY PATIENT: DARIELA ANTHONY UNIT: [id number] ADM DATE: 07/27/19 AGE: 74 : 44 SEX: M ROOM/BED: D.1212 AUTHOR: DAVINA AUSTIN PHYSICIAN: REFERRING PHYSICIAN: JHONNY PEREZ DO DATE OF SERVICE: 07/27/19 Discharge Plan Patient Name: DARIELA ANTHONY Facility: [facility]:[place] : 1945 Planned Disposition: Home with Home Health Anticipated Discharge Date: Discharge Date: Expected LOS: Initial Reviewer: [email or web address] Initial Review Date: 07/27/2019 Generated: 07/27/19 6:16 pm Comments DCP- Discharge Planning Updated by [email or web address]: Alexandra Brambila on 07/27/19 12:[address] CM met with patient to discuss initial discharge planning. Patient is in agreement to proceed with the assessment. Patient reports that he lives at home independently, alone. Patient is alert/oriented. Stairs/steps: 1. PCP: Dr. Kendra Weller. Pharmacy: [facility]. Patient states he has been able to obtain all of his prescribed medications. [facility]: [facility]. DME: CPM, Michael Cote, BSC with rails. Patient gives permission to speak with family members/care givers. Emergency contact: Woody anthony (son) [phone]. 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 CM discussed the availability of HH, Rehab, DME services. Patient wishes to use [facility] after his discharge.Patient feels safe returning to previous environment and will help in the home for the first 4 weeks, from [facility]. Patient denies being hospitalized within the past 30 days. Patient denies the use of community resources FACTORY ASSEMBLER. Transportation at time of discharge: [facility] or [employer]. CM will assist PRN with additional DC needs/plans. DCPIA - Discharge Planning Initial Assessment Updated by [email or web address]: Alexandra Brambila on 07/27/19 1:44 pm * Is the patient Alert and Oriented? Yes * How many steps to enter\exit or inside your home? * PCP Dr. Tony Gardner * [facility] * Preadmission Environment Home Alone * ADLs Independent * Equipment Walker * Other Equipment Walker, BSC w/rails, cane, CPM * List name and contact numbers for known caregivers / representatives who currently or will assist patient after discharge: Woody Anthony (son) [phone] * Verbal permission to speak to the caregivers and representatives has been obtained from the patient. Yes * Community resources currently utilized Home Health * Please name any agencies selected above. [facility] * Additional services required to return to the preadmission environment? Yes * Can the patient safely return to the preadmission environment? Yes * Has this patient been hospitalized within the prior 30 days at any hospital? No Coverage Notice Reviewer: [id number] Khalida Brambila Notice Issued Date-Time: 07/27/2019 13:23 Notice Type: Patient Choice Letter Notice Delivered To: Patient Relationship to Patient: Self Technology Sales Consultant Name: Dariela Anthony Delivery Method: HAND - Hand Delivered Lucita Days: Prior Verbal Notification: Recipient Understood Notice: Yes Recipient Signature: Yes Med Rec Note Co-signed by Attending: Coverage Notice Comment: Patient Choice for [facility]. Last DP export: 07/27/19 12:48 pm Patient Name: DARIELA ANTHONY Page [phone] at 1716 All edits/amendments must be made on the electronic document DICTATION DATE: 07/27/191715 PROPOSAL WRITER: VERONICA 07/27/191715 RPT#: [id number] DC DATE: STATUS: ADM IN [facility] [address] [place] [address] END OF REPORT
--- NOTE | 2019-07-27 17:34 | MORECARE ---
CASE MANAGEMENT DISCHARGE SUMMARY PATIENT: DARIELA ANTHONY UNIT: [id number] ADM DATE: 07/27/19 AGE: 74 : 44 SEX: M ROOM/BED: D.1212 AUTHOR: DAVINA AUSTIN PHYSICIAN: REFERRING PHYSICIAN: JHONNY PEREZ DO DATE OF SERVICE: 07/27/19 Discharge Plan Patient Name: DARIELA ANTHONY Facility: [facility]:[place] : 1945 Planned Disposition: Home with Home Health Anticipated Discharge Date: Discharge Date: Expected LOS: Initial Reviewer: [email or web address] Initial Review Date: 07/27/2019 Generated: 07/27/19 6:34 pm Comments DCP- Discharge Planning Updated by [email or web address]: Alexandra Brambila on 07/27/19 12:[address] CM met with patient to discuss initial discharge planning. Patient is in agreement to proceed with the assessment. Patient reports that he lives at home independently, alone. Patient is alert/oriented. Stairs/steps: 1. PCP: Dr. Kendra Weller. Pharmacy: [facility]. Patient states he has been able to obtain all of his prescribed medications. HHS: [facility]. DME: CPM, Michael Cote, BSC with rails. Patient gives permission to speak with family members/care givers. Emergency contact: Woody anthony (son) [phone]. Patient is Independent with all ADL's, medication management MANAGER NEWS. CM discussed the availability of HH, Rehab, DME services. Patient wishes to use [facility] after his discharge.Patient feels safe returning to previous environment and will help in the home for the first 4 weeks, from [facility]. Patient denies being hospitalized within the past 30 days. Patient denies the use of community resources MANAGER NEWS. Transportation at time of discharge: [facility] or [employer]. CM will assist PRN with additional DC needs/plans. DCPIA - Discharge Planning Initial Assessment Updated by [email or web address]: Alexandra Brambila on 07/27/19 1:44 pm * Is the patient Alert and Oriented? Yes * How many steps to enter\exit or inside your home? * PCP Dr. Tony Gardner * [facility] * Preadmission Environment Home Alone * ADLs Independent * Equipment Walker * Other Equipment Walker, BSC w/rails, cane, CPM * List name and contact numbers for known caregivers / representatives who currently or will assist patient after discharge: Woody Anthony (son) [phone] * Verbal permission to speak to the caregivers and representatives has been obtained from the patient. Yes * Community resources currently utilized Home Health * Please name any agencies selected above. [facility] * Additional services required to return to the preadmission environment? Yes * Can the patient safely return to the preadmission environment? Yes * Has this patient been hospitalized within the prior 30 days at any hospital? No Coverage Notice Reviewer: [id number] Khalida Brambila Notice Issued Date-Time: 07/27/2019 13:23 Notice Type: Patient Choice Letter Notice Delivered To: Patient Relationship to Patient: Self Beverage Specialist Name: Dariela Anthony Delivery Method: HAND - Hand Delivered Lucita Days: Prior Verbal Notification: Recipient Understood Notice: Yes Recipient Signature: Yes Med Rec Note Co-signed by Attending: Coverage Notice Comment: Patient Choice for [facility]. Last DP export: 07/27/19 4:16 pm Patient Name: DARIELA ANTHONY Page [phone] at 1734 All edits/amendments must be made on the electronic document DICTATION DATE: 07/27/191733 AUDIT SPECIALIST: VERONICA 07/27/191733 RPT#: [id number] DC DATE: STATUS: ADM IN [facility] [address] [place] [address] END OF REPORT
[2019-07-28 03:36] VITALS: BP 93/57
--- NOTE | 2019-07-28 08:34 | OP ---
PATIENT NAME: DARIELA COX MEDICAL RECORD: [id number] :43 LOCATION:D. D.1212 ADMISSION DATE:07/27/19 SURGEON: SONY PEREZ DO DATE OF OPERATION: 07/27/2019 PROCEDURE PERFORMED: Right total knee arthroplasty. PREOPERATIVE DIAGNOSIS: Right knee osteoarthritis. POSTOPERATIVE DIAGNOSIS: Right knee osteoarthritis. INDICATIONS: Mr. Cox is a 74-year-old male who had his left knee done a few months ago. He did well with that and wanted the right knee done as he has had bilateral knee pain for quite some time. He is tired dealing with the pain and it is affecting his activities of daily living and wants something done surgically. I informed him of the risks and benefits of the procedure including infection, bleeding, damage to nerves and vessels, need for further surgery, fracture, failure of implant, continued pain, loss of motion, blood clots, and even and he signed the consent. SURGEON: Sony Perez DO DESCRIPTION OF PROCEDURE: The patient was taken to the operative suite after given a block by anesthesia in the preoperative area, laid in a supine position, given general anesthetic. LMA was placed. He was given 2 grams of Ancef and 80 mg of gentamicin preoperatively. The right lower extremity was then prepped and draped in sterile fashion. A timeout was performed and everyone was in agreeance with the correct side, site, patient and procedure. I then marked out the incisions and covered the leg in Ioban. I used 10-blade scalpel to carefully dissect down to the capsule. Then, a fresh 10-blade was used to do a medial parapatellar approach through the capsule. The patella was exposed, milled down, part of fat pad was removed and then the femoral canal was entered with a drill and the distal femur was cut. The proximal tibia was then cut as well through a guide and then the bones were removed. The menisci removed as well. The knee was brought to extension and the extension block fit very well. The pins were then removed from the tibial guide that had been placed. I then measured the femur to be 60. A 4-in-1 cutting block was used and then cut through, and then the trial was put on the tibial tray and poly was floated in and rotation was marked on the tibial tray. I then drilled for the patella as well as the lug holes for the femur. The tibial tray was then sized to be 71 and then this was reamed and punched. Extra holes were put in the tibia. Cement was then mixed as the tibia was irrigated, and cement was placed in the tibia and on the implant and packed into place. Excess cement was removed. The femur was then impacted on and this was impacted in. The patella was put on and holes were cleaned out. Cement was put on the patella and on the implant and squeezer was held in place. I then put the povidone-iodine 10% with 500 mL of normal saline and placed in the knee, it was set for 3 minutes while the cement dried. We then irrigated out with over a liter of normal saline and the cement had then dried and the excess cement was removed and sized to be an 18. An 18 anterior stabilized poly was then put in locked into place. We then ranged the knee and it ranged very well. I did a medial and lateral stability with varus valgus stress in extension and flexion. I then put in Flavia and vancomycin and tobramycin powder and closed the knee capsule with #2 Ethibond in vujjoq-dd-ktcod fashion and then Mary Salmeron, certified surgical cutter first, assisted me with this as well as closing the skin with 2-0 Vicryl in an inverted OPERATIVE REPORT [id number] DARIELA COX interrupted fashion. ZipLine was placed on the knee. Adaptic, 4 x 4s, ABD, Webril, Martin wrap was then placed on the knee. He was then awakened and taken to recovery in stable condition. Blood loss was approximately 250 mL. COMPLICATIONS: None. TRANSINT:[id number] Voice Confirmation ID: [id number] DOCUMENT ID: [id number] SONY PEREZ DO at 0834 CC: [id number] DICTATION DATE: 07/27/19 0854 REGIONAL OWNER OPERATOR TRUCK DRIVER: 07/27/19 1507 ADM IN [place] [id number] [place] [id number]
[2019-07-28 09:01] LABS: BASOPHILS 0 % (0-2); EOSINOPHILS 0.7 % (0-7); HEMATOCRIT 32.3 % (42.0-54.0); HEMOGLOBIN 10.1 g/dL (13.5-17.5); IMMATURE GRANULOCYTES 0.1 % (0-5); MCH 27.8 pg (26.0-34.0); MCHC 31.3 g/dL (31.0-37.0); MEAN PLATELET VOLUME 8.8 fL (7.4-10.4); MONOCYTES 11.4 % (2-11); NEUTROPHILS 81.8 % (40-80); PLATELET COUNT 235 10x3/uL (130-400); RBC 3.63 10x6/uL (4.20-6.10); RDW 20.7 % (11.5-14.5); WBC 7.6 10x3/uL (4.8-10.8)
[2019-07-28 09:12] LABS: CALC OSMOLALITY 280 mosm/kg (275-300); CALCIUM 7.7 mg/dL (8.5-10.1); CARBON DIOXIDE 25.3 mmol/L (21.0-32.0); CHLORIDE - SERUM 108 mmol/L (98-107); GLUCOSE 111 mg/dL (74-106); POTASSIUM - SERUM 4.4 mmol/L (3.5-5.1); SODIUM 141 mmol/L (136-145); eGFR NON AFRICAN AMERICAN 77 mL/min (90-120)
[2019-07-28 09:13] LABS: UREA NITROGEN 10 mg/dL (7-18)
[2019-07-28 09:25] VITALS: BP 113/58
--- NOTE | 2019-07-28 11:02 | MORECARE ---
CASE MANAGEMENT DISCHARGE SUMMARY PATIENT: DARIELA ANTHONY UNIT: [id number] ADM DATE: 07/27/19 AGE: 74 : 44 SEX: M ROOM/BED: D.1212 AUTHOR: DAVINA AUSTIN PHYSICIAN: REFERRING PHYSICIAN: JHONNY PEREZ DO DATE OF SERVICE: 07/28/19 Discharge Plan Patient Name: DARIELA ANTHONY Facility: [facility]:[place] : 1945 Planned Disposition: Home with Home Health Anticipated Discharge Date: Discharge Date: Expected LOS: Initial Reviewer: [id number] Initial Review Date: 07/27/2019 Generated: 07/28/19 12:02 pm Comments DCP- Discharge Planning Updated by [email or web address]: Alexandra Brambila on 07/28/19 9:[address] CM spoke with Awais Maldonado [facility]. Faxed additional information, plus type of dressing patient will be DC'd with: (Mepilex AG). HHS will begin on Saturday 07/29. DCP- Discharge Planning Updated by [email or web address]: Alexandra Brambila on 07/27/19 12:[address] CM met with patient to discuss initial discharge planning. Patient is in agreement to proceed with the assessment. Patient reports that he lives at home independently, alone. Patient is alert/oriented. Stairs/steps: 1. PCP: Dr. Jimenez, Dr. Gardner. Pharmacy: [facility]. Patient states he has been able to obtain all of his prescribed medications. [facility]HS: [facility]. DME: CPM, Walker, Cane, BSC with rails. Patient gives permission to speak with family members/care givers. Emergency contact: Woody anthony (son) [phone]. Patient is Independent with all ADL's, medication management UPPER TIER. CM discussed the availability of HH, Rehab, DME services. Patient wishes to use [facility] after his discharge.Patient feels safe returning to previous environment and will help in the home for the first 4 weeks, from [facility]. Patient denies being hospitalized within the past 30 days. Patient denies the use of community resources UPPER TIER. Transportation at time of discharge: [facility] or [facility]. CM will assist PRN with additional DC needs/plans. DCPIA - Discharge Planning Initial Assessment Updated by [email or web address]: Alexandra Brambila on 07/27/19 1:44 pm * Is the patient Alert and Oriented? Yes * How many steps to enter\exit or inside your home? * PCP Dr. Tony Gardner * [facility] * Preadmission Environment Home Alone * ADLs Independent * Equipment Walker * Other Equipment Walker, BSC w/rails, cane, CPM * List name and contact numbers for known caregivers / representatives who currently or will assist patient after discharge: Woody Anthony (son) [phone] * Verbal permission to speak to the caregivers and representatives has been obtained from the patient. Yes * Community resources currently utilized Home Health * Please name any agencies selected above. [facility] * Additional services required to return to the preadmission environment? Yes * Can the patient safely return to the preadmission environment? Yes * Has this patient been hospitalized within the prior 30 days at any hospital? No Coverage Notice Reviewer: [id number] - Alexandra Brambila Notice Issued Date-Time: 07/27/2019 13:23 Notice Type: Patient Choice Letter Notice Delivered To: Patient Relationship to Patient: Self Sales Trader Name: Dariela Anthony Delivery Method: HAND - Hand Delivered Lucita Days: Prior Verbal Notification: Recipient Understood Notice: Yes Recipient Signature: Yes Med Rec Note Co-signed by Attending: Coverage Notice Comment: Patient Choice for [facility]. Last DP export: 07/27/19 4:34 pm Patient Name: DARIELA ANTHONY Page [phone] at 1102 All edits/amendments must be made on the electronic document DICTATION DATE: 07/28/19 1102 RECORDS SECTION SUPERVISOR: VERONICA 07/28/19 1102 RPT#: [id number] DC DATE: STATUS: ADM IN [facility] [address] [place] [address] END OF REPORT
[2019-07-28 11:20] VITALS: BP 103/63
[2019-07-28 13:54] VITALS: Ht 170.2 cm; Wt 77.1 kg
--- NOTE | 2019-07-28 14:36 | MORECARE ---
CASE MANAGEMENT DISCHARGE SUMMARY PATIENT: DARIELA COX UNIT: [id number] ADM DATE: 07/27/19 AGE: 74 : 44 SEX: M ROOM/BED: D.1212 AUTHOR: DAVINA AUSTIN PHYSICIAN: REFERRING PHYSICIAN: JHONNY PEREZ DO DATE OF SERVICE: 07/28/19 Discharge Plan Patient Name: DARIELA COX Facility: [facility]:[place] : 1945 Planned Disposition: Home with Home Health Anticipated Discharge Date: 07/29/19 Discharge Date: Expected LOS: 2 Initial Reviewer: [email or web address] Initial Review Date: 07/27/2019 Generated: 07/28/19 3:35 pm Comments DCP- Discharge Planning Updated by [email or web address]: Alexandra Brambila on 07/28/19 9:[address] CM spoke with Awais Maldonado [facility]. Faxed additional information, plus type of dressing patient will be DC'd with: (Mepilex AG). HHS will begin on Saturday 07/29. DCP- Discharge Planning Updated by [email or web address]: Alexandra Brambila on 07/27/19 12:[address] CM met with patient to discuss initial discharge planning. Patient is in agreement to proceed with the assessment. Patient reports that he lives at home independently, alone. Patient is alert/oriented. Stairs/steps: 1. PCP: Dr. Jimenez, Dr. Gardner. Pharmacy: [facility]. Patient states he has been able to obtain all of his prescribed medications. HHS: [facility]. DME: CPM, Walker, Cane, BSC with rails. Patient gives permission to speak with family members/care givers. Emergency contact: Woody cox (son) [phone]. Patient is Independent with all ADL's, medication management SUPERVISOR LONG GOODS. CM discussed the availability of HH, Rehab, DME services. Patient wishes to use [facility] after his discharge.Patient feels safe returning to previous environment and will help in the home for the first 4 weeks, from [facility]. Patient denies being hospitalized within the past 30 days. Patient denies the use of community resources SUPERVISOR LONG GOODS. Transportation at time of discharge: [facility] or [facility]. CM will assist PRN with additional DC needs/plans. DCPIA - Discharge Planning Initial Assessment Updated by [email or web address]: Alexandra Brambila on 07/27/19 1:44 pm * Is the patient Alert and Oriented? Yes * How many steps to enter\exit or inside your home? * PCP Dr. Tony Gardner * [facility]acy [facility] * Preadmission Environment Home Alone * ADLs Independent * Equipment Walker * Other Equipment Walker, BSC w/rails, cane, CPM * List name and contact numbers for known caregivers / representatives who currently or will assist patient after discharge: Woody Cox (son) [phone] * Verbal permission to speak to the caregivers and representatives has been obtained from the patient. Yes * Community resources currently utilized Home Health * Please name any agencies selected above. [facility] * Additional services required to return to the preadmission environment? Yes * Can the patient safely return to the preadmission environment? Yes * Has this patient been hospitalized within the prior 30 days at any hospital? No Coverage Notice Reviewer: [id number] - Alexandra Brambila Notice Issued Date-Time: 07/27/2019 13:23 Notice Type: Patient Choice Letter Notice Delivered To: Patient Relationship to Patient: Self Fence Repairman Name: Dariela Cox Delivery Method: HAND - Hand Delivered Lucita Days: Prior Verbal Notification: Recipient Understood Notice: Yes Recipient Signature: Yes Med Rec Note Co-signed by Attending: Coverage Notice Comment: Patient Choice for [facility]. Last DP export: 07/28/19 10:02 am Patient Name: DARIELA COX Page 23612 at 1436 All edits/amendments must be made on the electronic document DICTATION DATE: 07/28/19 1435 ADVERTISEMENT COMPOSITOR: VERONICA 07/28/19 1435 RPT#: [id number] DC DATE: STATUS: ADM IN [facility] [address] [place] [address] END OF REPORT
--- NOTE | 2019-07-28 16:14 | MORECARE ---
CASE MANAGEMENT DISCHARGE SUMMARY PATIENT: DARIELA COX UNIT: [id number] ADM DATE: 07/27/19 AGE: 74 : 44 SEX: M ROOM/BED: D.1212 AUTHOR: DAVINA AUSTIN PHYSICIAN: REFERRING PHYSICIAN: JHONNY PEREZ DO DATE OF SERVICE: 07/28/19 Discharge Plan Patient Name: DARIELA COX Facility: [facility]:[place] : 1945 Planned Disposition: Home with Home Health Anticipated Discharge Date: 07/29/19 Discharge Date: Expected LOS: 2 Initial Reviewer: [email or web address] Initial Review Date: 07/27/2019 Generated: 07/28/19 5:13 pm Comments DCP- Discharge Planning Updated by [email or web address]: Alexandra Brambila on 07/28/19 9:[address] CM spoke with Awais Maldonado [facility]. Faxed additional information, plus type of dressing patient will be DC'd with: (Mepilex AG). HHS will begin on Saturday 07/29. DCP- Discharge Planning Updated by [email or web address]: Alexandra Brambila on 07/27/19 12:[address] CM met with patient to discuss initial discharge planning. Patient is in agreement to proceed with the assessment. Patient reports that he lives at home independently, alone. Patient is alert/oriented. Stairs/steps: 1. PCP: Dr. Jimenez, Dr. Gardner. Pharmacy: [facility]. Patient states he has been able to obtain all of his prescribed medications. HHS: [facility]. DME: CPM, Walker, Cane, BSC with rails. Patient gives permission to speak with family members/care givers. Emergency contact: Woody cox (son) [phone]. Patient is Independent with all ADL's, medication management INSTALLER MOLDING AND TRIM. CM discussed the availability of HH, Rehab, DME services. Patient wishes to use [facility] after his discharge.Patient feels safe returning to previous environment and will help in the home for the first 4 weeks, from [facility] & [facility]. Patient denies being hospitalized within the past 30 days. Patient denies the use of community resources INSTALLER MOLDING AND TRIM. Transportation at time of discharge: [facility] or [facility]. CM will assist PRN with additional DC needs/plans. DCPIA - Discharge Planning Initial Assessment Updated by [email or web address]: Alexandra Brambila on 07/27/19 1:44 pm * Is the patient Alert and Oriented? Yes * How many steps to enter\exit or inside your home? * PCP Dr. Tony Gardner * Pharmacy [facility] * Preadmission Environment Home Alone * ADLs Independent * Equipment Walker * Other Equipment Walker, BSC w/rails, cane, CPM * List name and contact numbers for known caregivers / representatives who currently or will assist patient after discharge: Woody Cox (son) [phone] * Verbal permission to speak to the caregivers and representatives has been obtained from the patient. Yes * Community resources currently utilized Home Health * Please name any agencies selected above. [facility] * Additional services required to return to the preadmission environment? Yes * Can the patient safely return to the preadmission environment? Yes * Has this patient been hospitalized within the prior 30 days at any hospital? No Coverage Notice Reviewer: [email or web address] Khalida Brambila Notice Issued Date-Time: 07/27/2019 13:23 Notice Type: Patient Choice Letter Notice Delivered To: Patient Relationship to Patient: Self Icu Clerk Name: Dariela Cox Delivery Method: HAND - Hand Delivered Lucita Days: Prior Verbal Notification: Recipient Understood Notice: Yes Recipient Signature: Yes Med Rec Note Co-signed by Attending: Coverage Notice Comment: Patient Choice for [facility]. Reviewer: [id number] Khalida Brambila Notice Issued Date-Time: 07/28/2019 16:04 Notice Type: IM Discharge Notice Notice Delivered To: Patient Relationship to Patient: Self Icu Clerk Name: Dariela Cox Delivery Method: HAND - Hand Delivered Lucita Days: Prior Verbal Notification: Recipient Understood Notice: Yes Recipient Signature: Yes Med Rec Note Co-signed by Attending: Coverage Notice Comment: DC IMM delivered to and signed by patient. Original given to patient and one placed on the chart. Last DP export: 07/28/19 1:36 pm Patient Name: DARIELA COX Page [id number] at 1614 All edits/amendments must be made on the electronic document DICTATION DATE: 07/28/19 1613 BRIDGE PAINTER HELPER: VERONICA 07/28/19 1613 RPT#: [id number] DC DATE: STATUS: ADM IN [facility] [address] [place] [address] END OF REPORT
[2019-07-28 19:16] VITALS: BP 154/85
[2019-07-29 00:27] VITALS: BP 130/70
[2019-07-29 04:21] VITALS: BP 134/79
[2019-07-29 07:51] LABS: CALC OSMOLALITY 279 mosm/kg (275-300); CALCIUM 7.8 mg/dL (8.5-10.1); CARBON DIOXIDE 25.4 mmol/L (21.0-32.0); CHLORIDE - SERUM 107 mmol/L (98-107); CREATININE - SERUM 0.9 mg/dL (0.6-1.3); GLUCOSE 96 mg/dL (74-106); MAGNESIUM - SERUM 1.9 mg/dL (1.8-2.4); POTASSIUM - SERUM 3.8 mmol/L (3.5-5.1); SODIUM 141 mmol/L (136-145); UREA NITROGEN 9 mg/dL (7-18); eGFR NON AFRICAN AMERICAN 87 mL/min (90-120)
[2019-07-29 07:52] LABS: BASOPHILS 0 % (0-2); EOSINOPHILS 1.6 % (0-7); HEMOGLOBIN 9.8 g/dL (13.5-17.5); IMMATURE GRANULOCYTES 0.2 % (0-5); LYMPHOCYTES 7.9 % (15-50); MCH 27.8 pg (26.0-34.0); MCHC 31.6 g/dL (31.0-37.0); MCV 87.8 fL (80.0-100.0); MEAN PLATELET VOLUME 8.8 fL (7.4-10.4); MONOCYTES 14.1 % (2-11); NEUTROPHILS 76.2 % (40-80); PLATELET COUNT 239 10x3/uL (130-400); RBC 3.53 10x6/uL (4.20-6.10); RDW 20.3 % (11.5-14.5); WBC 6.3 10x3/uL (4.8-10.8)
[2019-07-29] MEDS ORDERED: ELIQUIS2.5 MG PO (08:47)
[2019-07-29] MEDS ORDERED: KEFLEX500 MG PO (08:47)
[2019-07-29] MEDS ORDERED: HYDROCODON-ACE1 EAC7 PO (08:48)
--- NOTE | 2019-07-29 13:11 | MORECARE ---
CASE MANAGEMENT DISCHARGE SUMMARY PATIENT: DARIELA ANTHONY UNIT: [id number] ADM DATE: 07/27/19 AGE: 74 : 44 SEX: M ROOM/BED: D.1212 AUTHOR: DAVINA AUSTIN PHYSICIAN: REFERRING PHYSICIAN: JHONNY PEREZ DO DATE OF SERVICE: 07/29/19 Discharge Plan Patient Name: DARIELA ANTHONY Facility: [facility]:[place] : 1945 Planned Disposition: Home with Home Health Anticipated Discharge Date: 07/29/19 Discharge Date: 07/29/2019 Expected LOS: 2 Initial Reviewer: [email or web address] Initial Review Date: 07/27/2019 Generated: 07/29/19 2:11 pm Comments DCP- Discharge Planning Updated by [email or web address]: Alexandra Brambila on 07/28/19 9:[address] CM spoke with Awais Maldonado. Faxed additional information, plus type of dressing patient will be DC'd with: (Mepilex AG). HHS will begin on Saturday 07/29. DCP- Discharge Planning Updated by [email or web address]: Alexandra Brambila on 07/27/19 12:[address] CM met with patient to discuss initial discharge planning. Patient is in agreement to proceed with the assessment. Patient reports that he lives at home independently, alone. Patient is alert/oriented. Stairs/steps: 1. PCP: Dr. Kendra Weller. [facility] Patient states he has been able to obtain all of his prescribed medications. HHS: [facility]. DME: CPM, Walker, Cane, BSC with rails. Patient gives permission to speak with family members/care givers. Emergency contact: Woody anthony (son) [phone]. Patient is Independent with all ADL's, medication management DIRECTOR GLOBAL MARKET RESEARCH. CM discussed the availability of HH, Rehab, DME services. Patient wishes to use [facility] after his discharge.Patient feels safe returning to previous environment and will help in the home for the first 4 weeks, from [facility]. Patient denies being hospitalized within the past 30 days. Patient denies the use of community resources DIRECTOR GLOBAL MARKET RESEARCH. Transportation at time of discharge: [facility] or [facility]. CM will assist PRN with additional DC needs/plans. DCPIA - Discharge Planning Initial Assessment Updated by [email or web address]: Alexandra Brambila on 07/27/19 1:44 pm * Is the patient Alert and Oriented? Yes * How many steps to enter\exit or inside your home? * PCP Dr. Tony Gardner * Pharmacy [facility] * Preadmission Environment Home Alone * ADLs Independent * Equipment Walker * Other Equipment Walker, BSC w/rails, cane, CPM * List name and contact numbers for known caregivers / representatives who currently or will assist patient after discharge: Woody Anthony (son) [phone] * Verbal permission to speak to the caregivers and representatives has been obtained from the patient. Yes * Community resources currently utilized Home Health * Please name any agencies selected above. [facility] * Additional services required to return to the preadmission environment? Yes * Can the patient safely return to the preadmission environment? Yes * Has this patient been hospitalized within the prior 30 days at any hospital? No Coverage Notice Reviewer: [email or web address] Khalida Brambila Notice Issued Date-Time: 07/27/2019 13:23 Notice Type: Patient Choice Letter Notice Delivered To: Patient Relationship to Patient: Self Wig Stylist Name: Dariela Anthony Delivery Method: HAND - Hand Delivered Lucita Days: Prior Verbal Notification: Recipient Understood Notice: Yes Recipient Signature: Yes Med Rec Note Co-signed by Attending: Coverage Notice Comment: Patient Choice for [facility]. Reviewer: [id number] Khalida Brambila Notice Issued Date-Time: 07/28/2019 16:04 Notice Type: IM Discharge Notice Notice Delivered To: Patient Relationship to Patient: Self Wig Stylist Name: Dariela Anthony Delivery Method: HAND - Hand Delivered Lucita Days: Prior Verbal Notification: Recipient Understood Notice: Yes Recipient Signature: Yes Med Rec Note Co-signed by Attending: Coverage Notice Comment: DC IMM delivered to and signed by patient. Original given to patient and one placed on the chart. Last DP export: 07/28/19 3:14 pm Patient Name: DARIELA ANTHONY Page [phone] at 1311 All edits/amendments must be made on the electronic document DICTATION DATE: 07/29/19 1311 COVERAGE SPECIALIST: DM 07/29/19 1311 RPT#: [id number] DC DATE:07/29/19 STATUS: DIS IN [facility] [address] [place] [address] END OF REPORT
== END 2019-07-29 12:58 | disposition home health service (06) | DRG 470 ==
LOC: D.SDCHOLD 07-27 05:05 → D.M3 07-27 05:05 → D.SDCHOLD 07-27 07:00 → D.M3 07-27 09:34
PROVIDERS: Family Medicine; ADMIT Orthopaedic Surgery; ATTEND Orthopaedic Surgery
PROC: 0SRC0J9 Replacement of Right Knee Joint with Synthetic Substitute, Cemented, Open Approach (ICD-10-PCS; principal; 2019-07-27 07:00)
DX: M17.11 Unilateral primary osteoarthritis, right knee (principal); F17.213 Nicotine dependence, cigarettes, with withdrawal; I10 Essential (primary) hypertension; D64.9 Anemia, unspecified; N40.0 Benign prostatic hyperplasia without lower urinary tract symptoms

== ENCOUNTER 2020-08-02 13:04 | Inpatient (IN) | payer MEDICARE, BC ==
[~2020-08-02] VITALS: Ht 170.2 cm; Wt 70.3 kg
[~2020-08-02 13:04] MED LIST changes: +CITRACAL + D E1 EACH PO; +ELIQUIS2.5 MG PO; +HYDROCODON-ACE1 EA10 PO; +HYDROCODON-ACE1 EAC7 PO; +NICODERM CQ1 EAC2 TRANSDERM
[2020-08-02] MEDS ORDERED: ZOFRAN ODT4 MG/UDTAB PO (13:13)
--- NOTE | 2020-08-02 13:51 | NUR ---
DR. PENDLETON AT BEDSIDE.
[2020-08-02 14:22] LABS: BASOPHILS 0.3 % (0-2); EOSINOPHILS 1.1 % (0-7); HEMATOCRIT 35.8 % (42.0-54.0); HEMOGLOBIN 11.6 g/dL (13.5-17.5); IMMATURE GRANULOCYTES 0.2 % (0-5); LYMPHOCYTES 5.9 % (15-50); MCH 28.9 pg (26.0-34.0); MCHC 32.4 g/dL (31.0-37.0); MCV 89.3 fL (80.0-100.0); MEAN PLATELET VOLUME 9.2 fL (7.4-10.4); MONOCYTES 9.1 % (2-11); NEUTROPHIL ABS# 8.49 10x3/uL (1.78-5.38); NEUTROPHILS 83.4 % (40-80); PLATELET COUNT 258 10x3/uL (130-400); RBC 4.01 10x6/uL (4.20-6.10); RDW 15.9 % (11.5-14.5); WBC 10.2 10x3/uL (4.8-10.8)
[2020-08-02 14:29] LABS: CALC OSMOLALITY 273 mosm/kg (275-300); CALCIUM 8.8 mg/dL (8.5-10.1); CHLORIDE - SERUM 101 mmol/L (98-107); CREATININE - SERUM 0.9 mg/dL (0.6-1.3); GLUCOSE 98 mg/dL (74-106); POTASSIUM - SERUM 4.1 mmol/L (3.5-5.1); SODIUM 134 mmol/L (136-145); UREA NITROGEN 28 mg/dL (7-18); eGFR NON AFRICAN AMERICAN 87 mL/min (90-120)
[2020-08-02 14:32] LABS: APTT 30.2 SECONDS (22.8-39.4); INR 1.11 (0.85-1.17); PROTIME 13.3 SECONDS (11.6-15.0)
[2020-08-02 14:45] LABS: ALBUMIN 3.5 g/dL (3.4-5.0); ALKALINE PHOSPHATASE 75 U/L (30-120); ALT (SGPT) 21 U/L (10-68); BILIRUBIN - TOTAL 0.26 mg/dL (0.2-1.3); CKMB 0.4 U/L (0.0-3.6); CREATINE KINASE 68 UL (21-232); PROTEIN - SERUM 6.6 g/dL (6.4-8.2); TROPONIN-I < 0.017 ng/mL (0.000-0.060)
[2020-08-02 15:00] VITALS: BP 142/84
[2020-08-02 16:00] VITALS: BP 167/92
[2020-08-02 18:00] VITALS: BP 148/105
[2020-08-02 20:00] VITALS: BP 154/70
[2020-08-02 20:57] LABS: SARS-CoV-2 ANTIGEN NEGATIVE- SARS-COV-2 (NEGATIVE)
[2020-08-02 22:18] VITALS: BP 154/70; BMI 24.3
--- NOTE | 2020-08-02 22:42 | NUR ---
PT STATED DURING ADMIT ASSESSMENT THAT HE HAD THOUGHTS OF SUICIDE 2-3 TIMES THIS WEEK AND HAS HAD SUICIDAL THOUGHTS WITHIN THE LAST 3 MONTHS. PT STATED HE HAD NO PLANS TO CARRY OUT NOR HAS HE EVER MADE PLANS FOR A SUICIDE ATTEMPT. RISK ASSESSMENT WAS ELABORATED ON DUE TO PT WITHDRAWING FROM MY QUESTIONING. NOTIFIED [facility] WHO STATED SHE WOULD SEND A PSYCH CONSULT. PTS ROOM IS NEAR NURSES STATION WITH DOOR OPEN. SHARP OBJECTS REMOVED FROM PTS ROOM. WILL CONT TO MONITOR.
--- NOTE | 2020-08-02 23:03 | NUR ---
PATIENT DENIES BEING SUICIDIAL, AND WAS VERY ANGRY ABOUT BEING DISTURBED FROM HIS SLEEP REGARDING THIS MATTER. HE ONLY WOULD ANSWER THE FIRST FEW QUESTIONS OF THE INTERVIEW. HE SAID "I WISHED I NEVER WOULD HAVE SAID THAT I HAVE THOUGHT ABOUT IT AND THIS IS NOT WHY I AM EVEN HERE FOR". HE IS NOT SUICIDIAL. 1-800 GIVEN FOR FUTURE REFRENCE.
[2020-08-03 04:00] VITALS: BP 117/83
[2020-08-03 04:37] LABS: BASOPHILS 0.3 % (0-2); EOSINOPHILS 2.6 % (0-7); HEMATOCRIT 34.4 % (42.0-54.0); HEMOGLOBIN 11.1 g/dL (13.5-17.5); IMMATURE GRANULOCYTES 0.2 % (0-5); LYMPHOCYTE ABS# 0.58 10x3/uL (1.32-3.57); LYMPHOCYTES 9.5 % (15-50); MCH 28.7 pg (26.0-34.0); MCHC 32.3 g/dL (31.0-37.0); MCV 88.9 fL (80.0-100.0); MEAN PLATELET VOLUME 9.3 fL (7.4-10.4); MONOCYTES 12.4 % (2-11); NEUTROPHIL ABS# 4.58 10x3/uL (1.78-5.38); PLATELET COUNT 252 10x3/uL (130-400); RBC 3.87 10x6/uL (4.20-6.10)
[2020-08-03 04:45] LABS: WBC 6.1 10x3/uL (4.8-10.8)
[2020-08-03 05:08] LABS: ALBUMIN 3.2 g/dL (3.4-5.0); ALKALINE PHOSPHATASE 67 U/L (30-120); ALT (SGPT) 17 U/L (10-68); BILIRUBIN - TOTAL 0.24 mg/dL (0.2-1.3); CALC OSMOLALITY 273 mosm/kg (275-300); CALCIUM 8.5 mg/dL (8.5-10.1); CARBON DIOXIDE 26.4 mmol/L (21.0-32.0); CHLORIDE - SERUM 103 mmol/L (98-107); CREATININE - SERUM 0.8 mg/dL (0.6-1.3); GLUCOSE 85 mg/dL (74-106); MAGNESIUM - SERUM 2.3 mg/dL (1.8-2.4); POTASSIUM - SERUM 3.8 mmol/L (3.5-5.1); PROTEIN - SERUM 6.6 g/dL (6.4-8.2); SODIUM 136 mmol/L (136-145); UREA NITROGEN 22 mg/dL (7-18); eGFR NON AFRICAN AMERICAN > 90 mL/min (90-120)
[2020-08-03 08:27] VITALS: BP 143/82
[2020-08-03 12:24] VITALS: BP 158/86
[2020-08-03 12:52] VITALS: Ht 170.2 cm; Wt 70.3 kg
[2020-08-03 17:01] VITALS: BP 181/100
[2020-08-03 19:14] VITALS: BP 147/91
--- NOTE | 2020-08-03 20:59 | NUR ---
REPORT RECEIVED WILL CONT POC. PT A&O, UP IN BED WATCHING TV. NO S/S OF DISTRESS OBSERVED, RR EVEN AND UNLABORED ON RA. BED LOCKED AND LOWERED, CL IN REACH. ASSESSMENT COMPLETED AT THIS TIME. WILL CONT TO MONITOR.
[2020-08-04 03:56] VITALS: BP 143/94
[2020-08-04 04:35] LABS: BASOPHILS 0.2 % (0-2); HEMATOCRIT 36.6 % (42.0-54.0); HEMOGLOBIN 11.9 g/dL (13.5-17.5); IMMATURE GRANULOCYTES 0.2 % (0-5); LYMPHOCYTE ABS# 0.65 10x3/uL (1.32-3.57); MCHC 32.5 g/dL (31.0-37.0); MCV 89.1 fL (80.0-100.0); MEAN PLATELET VOLUME 9.2 fL (7.4-10.4); MONOCYTES 11.8 % (2-11); NEUTROPHIL ABS# 3.94 10x3/uL (1.78-5.38); NEUTROPHILS 72.8 % (40-80); PLATELET COUNT 273 10x3/uL (130-400); RBC 4.11 10x6/uL (4.20-6.10); WBC 5.4 10x3/uL (4.8-10.8)
[2020-08-04 04:56] LABS: ALBUMIN 3.2 g/dL (3.4-5.0); ALKALINE PHOSPHATASE 70 U/L (30-120); ALT (SGPT) 19 U/L (10-68); BILIRUBIN - TOTAL 0.23 mg/dL (0.2-1.3); CALC OSMOLALITY 274 mosm/kg (275-300); CALCIUM 8.3 mg/dL (8.5-10.1); CARBON DIOXIDE 24.5 mmol/L (21.0-32.0); CHLORIDE - SERUM 103 mmol/L (98-107); CREATININE - SERUM 0.9 mg/dL (0.6-1.3); GLUCOSE 95 mg/dL (74-106); MAGNESIUM - SERUM 2.2 mg/dL (1.8-2.4); POTASSIUM - SERUM 3.9 mmol/L (3.5-5.1); PROTEIN - SERUM 6.7 g/dL (6.4-8.2); SODIUM 137 mmol/L (136-145); eGFR NON AFRICAN AMERICAN 87 mL/min (90-120)
[2020-08-04 04:58] LABS: UREA NITROGEN 14 mg/dL (7-18)
[2020-08-04 08:50] VITALS: BP 146/90
[2020-08-04 13:24] VITALS: BP 149/85
[2020-08-04 16:44] VITALS: BP 138/86; BP 162/90
[2020-08-04 20:53] VITALS: BP 141/69
[2020-08-05 04:34] VITALS: BP 129/83
[2020-08-05 04:44] LABS: BASOPHILS 0.2 % (0-2); HEMOGLOBIN 10.7 g/dL (13.5-17.5); IMMATURE GRANULOCYTES 0.2 % (0-5); LYMPHOCYTE ABS# 0.71 10x3/uL (1.32-3.57); LYMPHOCYTES 11.8 % (15-50); MCH 28.8 pg (26.0-34.0); MCHC 32.4 g/dL (31.0-37.0); MCV 88.7 fL (80.0-100.0); MONOCYTES 10.8 % (2-11); NEUTROPHIL ABS# 4.44 10x3/uL (1.78-5.38); PLATELET COUNT 236 10x3/uL (130-400); RBC 3.72 10x6/uL (4.20-6.10); RDW 15.9 % (11.5-14.5)
[2020-08-05 05:19] LABS: ALBUMIN 2.9 g/dL (3.4-5.0); ALKALINE PHOSPHATASE 65 U/L (30-120); ALT (SGPT) 23 U/L (10-68); BILIRUBIN - TOTAL 0.19 mg/dL (0.2-1.3); CALC OSMOLALITY 275 mosm/kg (275-300); CALCIUM 8.4 mg/dL (8.5-10.1); CHLORIDE - SERUM 104 mmol/L (98-107); CREATININE - SERUM 0.8 mg/dL (0.6-1.3); GLUCOSE 94 mg/dL (74-106); MAGNESIUM - SERUM 2.1 mg/dL (1.8-2.4); POTASSIUM - SERUM 3.9 mmol/L (3.5-5.1); PROTEIN - SERUM 6.2 g/dL (6.4-8.2); SODIUM 137 mmol/L (136-145); eGFR NON AFRICAN AMERICAN > 90 mL/min (90-120)
[2020-08-05 05:20] LABS: UREA NITROGEN 18 mg/dL (7-18)
[2020-08-05 07:30] VITALS: BP 138/81
--- NOTE | 2020-08-05 08:19 | NUR ---
AM MEDS GIVEN AT THIS TIME. PT A/O X4, RESP EVEN AND NONLABORED ON RA. RT AC IV SL. SR-80 ON TELEMETRY. PT WAS ALBE TO DO 2500 ON IS. DENIES ANY NEEDS AT THIS TIME. CALL LIGHT IN REACH, NAD NOTED, WILL CONTINUE PLAN OF CARE.
--- NOTE | 2020-08-05 12:14 | NUR ---
FREDY GIVEN FORP PAIN LEVEL OF 7/10. PT DENIES ANY OTHER NEEDS AT THIS TIME. CALL LIGHT IN REACH.
[2020-08-05] MEDS ORDERED: AZITHROMYCIN500 MG PO (13:22)
[2020-08-05] MEDS ORDERED: VENTOLIN HFA [SP8 GM INH (13:23)
--- NOTE | 2020-08-05 14:57 | NUR ---
PROVIDED VERBAL AND WRITTEN DISCHARGE TEACHING TO PT, WHO VERBALIZED UNDERSTANDING REGARING TEACHING. D/C RT AC IV WITH CATHETER TIP INTACT. HEART MONITOR REMOVED AND TAKEN TO MACHINE LEATHER TRIMMER.
--- NOTE | 2020-08-05 15:38 | NUR ---
PT RESTING COMFORTABLY IN BED, DENIES ANY NEED AT THIS TIME. BED ALARM ON AND CALL LIGHT IN REACH.
--- NOTE | 2020-08-05 16:07 | NUR ---
NORCO GIVEN FOR PAIN LEVEL OF 5/10. PT WAITING ON RIDE, WILL NOTIFY NURSE WHEN READY FOR WHEELCHAIR.
--- NOTE | 2020-08-05 17:44 | NUR ---
PT LEFT UNIT VIA WHEELCHAIR, WITH ALL BELONGINGS, NAD NOTED.
--- NOTE | 2020-08-05 17:57 | MORECARE ---
CASE MANAGEMENT DISCHARGE SUMMARY PATIENT: DARIELA ANTHONY UNIT: [id number] ADM DATE: 08/02/20 AGE: 75 : 44 SEX: M ROOM/BED: D.2139 AUTHOR: DAVINA AUSTIN PHYSICIAN: REFERRING PHYSICIAN: BHAVANI TORRES MD DATE OF SERVICE: 08/05/20 Discharge Plan Patient Name: DARIELA ANTHONY [facility] [facility] 1945 Planned Disposition: Home Anticipated Discharge Date: 08/05/20 Discharge Date: 08/05/2020 Expected LOS: 3 Initial Reviewer: [email or web address] Initial Review Date: 08/02/2020 Generated: 08/05/20 6:56 pm Patient Name: DARIELA ANTHONY Page 11733 at 1757 All edits/amendments must be made on the electronic document DICTATION DATE: 08/05/201756 FOURCHETTE SEWER: VERONICA 08/05/201756 RPT#: [id number] DC DATE:08/05/20 STATUS: DIS IN [facility] [address] [place] [address] END OF REPORT
--- NOTE | 2020-08-05 18:04 | MORECARE ---
CASE MANAGEMENT DISCHARGE SUMMARY PATIENT: DARIELA COX UNIT: [id number] ADM DATE: 08/02/20 AGE: 75 : 44 SEX: M ROOM/BED: D.1468 AUTHOR: DAVINA AUSTIN PHYSICIAN: REFERRING PHYSICIAN: BHAVANI TORRES MD DATE OF SERVICE: 08/05/20 Discharge Plan Patient Name: DARIELA COX Facility: [facility]:[place] : 1945 Planned Disposition: Home Anticipated Discharge Date: 08/05/20 Discharge Date: 08/05/2020 Expected LOS: 3 Initial Reviewer: [email or web address] Initial Review Date: 08/02/2020 Generated: 08/05/20 7:03 pm Comments DCP- Discharge Planning Updated by [email or web address]: Tez Drake on 08/05/20 4:[address] CM met with patient to complete DC plan and to evaluate needs. Patient lives independently at home with his son Woody ([phone]). At discharge, the patient plans to return home and feels this is a safe discharge. CM discussed availability of home health, rehab services, and medical equipment. Patient declined HHS, SNF, IPR, and DME. Patient voiced no other needs at this time and is satisfied with DC plan. Transportation provider at discharge will be with Woody. DC IMM delivered, explained, signed by the patient, and placed in chart. Signed form also left with the patient. CM will continue to follow and will assist as needed with dc plans/needs. DCPIA - Discharge Planning Initial Assessment Updated by [email or web address]: Tez Drake on 08/05/20 5:57 pm * Is the patient Alert and Oriented? Yes * PCP MARLENE / CHUNG * Pharmacy [facility] [address] * Preadmission Environment Home with Family * ADLs Independent * Equipment Walker * Other Equipment n/a * List name and contact numbers for known caregivers / representatives who currently or will assist patient after discharge: Woody Cox (son) [phone] * Verbal permission to speak to the caregivers and representatives has been obtained from the patient. Yes * Community resources currently utilized None * Please name any agencies selected above. n/a * Additional services required to return to the preadmission environment? No * Can the patient safely return to the preadmission environment? Yes * Has this patient been hospitalized within the prior 30 days at any hospital? No Coverage Notice Reviewer: [id number] Khalida Drake Notice Issued Date-Time: 08/05/2020 14:05 Notice Type: IM Discharge Notice Notice Delivered To: Patient Relationship to Patient: Self Bobbin Stripper Name: Delivery Method: HAND - Hand Delivered Lucita Days: Prior Verbal Notification: Recipient Understood Notice: Yes Recipient Signature: Yes Med Rec Note Co-signed by Attending: Coverage Notice Comment: DC IMM delivered, explained, signed by the patient, and placed in chart. Last DP export: 08/05/20 4:57 p Patient Name: DARIELA COX Page 42740 at 1804 All edits/amendments must be made on the electronic document DICTATION DATE: 08/05/201802 DERMATOLOGY NURSE PRACTITIONER: VERONICA 08/05/201802 RPT#: [id number] DC DATE:08/05/20 STATUS: DIS IN [facility] [address] [place] [address] END OF REPORT
--- NOTE | 2020-08-07 08:26 | MORECARE ---
CASE MANAGEMENT DISCHARGE SUMMARY PATIENT: DARIELA COX UNIT: [id number] ADM DATE: 08/02/20 AGE: 75 : 44 SEX: M ROOM/BED: D.4125 AUTHOR: DAVINA AUSTIN PHYSICIAN: REFERRING PHYSICIAN: BHAVANI TORRES MD DATE OF SERVICE: 08/07/20 Discharge Plan Patient Name: DARIELA COX Facility: [facility]:[place] : 1945 Planned Disposition: Home Anticipated Discharge Date: 08/05/20 Discharge Date: 08/05/2020 Expected LOS: 3 Initial Reviewer: [email or web address] Initial Review Date: 08/02/2020 Generated: 08/07/20 9:25 am Comments DCP- Discharge Planning Updated by [email or web address]: eTz Drake on 08/05/20 3:[address] CM met with patient to complete DC plan and to evaluate needs. Patient lives independently at home with his son Woody ([phone]). At discharge, the patient plans to return home and feels this is a safe discharge. CM discussed availability of home health, rehab services, and medical equipment. Patient declined HHS, SNF, IPR, and DME. Patient voiced no other needs at this time and is satisfied with DC plan. Transportation provider at discharge will be with Woody. DC IMM delivered, explained, signed by the patient, and placed in chart. Signed form also left with the patient. CM will continue to follow and will assist as needed with dc plans/needs. DCPIA - Discharge Planning Initial Assessment Updated by [email or web address]: Tez Drake on 08/05/20 5:57 pm * Is the patient Alert and Oriented? Yes * PCP MARLENE / CHUNG * Pharmacy [facility] [address] * Preadmission Environment Home with Family * ADLs Independent * Equipment Walker * Other Equipment n/a * List name and contact numbers for known caregivers / representatives who currently or will assist patient after discharge: Woody Cox (son) [phone] * Verbal permission to speak to the caregivers and representatives has been obtained from the patient. Yes * Community resources currently utilized None * Please name any agencies selected above. n/a * Additional services required to return to the preadmission environment? No * Can the patient safely return to the preadmission environment? Yes * Has this patient been hospitalized within the prior 30 days at any hospital? No Coverage Notice Reviewer: [email or web address] Khalida Drake Notice Issued Date-Time: 08/05/2020 14:05 Notice Type: IM Discharge Notice Notice Delivered To: Patient Relationship to Patient: Self Machine Shop Lead Man Name: Delivery Method: HAND - Hand Delivered Lucita Days: Prior Verbal Notification: Recipient Understood Notice: Yes Recipient Signature: Yes Med Rec Note Co-signed by Attending: Coverage Notice Comment: DC IMM delivered, explained, signed by the patient, and placed in chart. Last DP export: 08/05/20 4:04 p Patient Name: DARIELA COX Page [phone] at 0826 All edits/amendments must be made on the electronic document DICTATION DATE: 08/07/20825 HAIR SPECIALIST: VERONICA 08/07/20825 RPT#: [id number] DC DATE:08/05/20 STATUS: DIS IN [address] [place] [address] END OF REPORT
== END 2020-08-05 17:43 | disposition home or self-care (01) | DRG 202 ==
LOC: D.ER 13:04 → D.EDHOLD 16:33 → D.M2 16:33
PROVIDERS: Family Medicine; ADMIT Family Medicine Adult Medicine; ATTEND Family Medicine Adult Medicine
DX: J40 Bronchitis, not specified as acute or chronic (principal); J18.9 Pneumonia, unspecified organism; E87.1 Hypo-osmolality and hyponatremia; R04.2 Hemoptysis; F17.203 Nicotine dependence unspecified, with withdrawal; Z20.822 Contact with and (suspected) exposure to COVID-19; Z85.820 Personal history of malignant melanoma of skin; Z85.46 Personal history of malignant neoplasm of prostate; I10 Essential (primary) hypertension; Z96.653 Presence of artificial knee joint, bilateral; D50.9 Iron deficiency anemia, unspecified; I71.4 Abdominal aortic aneurysm, without rupture

== ENCOUNTER → 2020-11-24 12:46 | Outpatient (CLI) | payer MEDICARE, BC ==
[2020-08-03 12:52] VITALS: BMI 24.2
[~2020-11-24 12:46] MED LIST changes: +AZITHROMYCIN500 MG PO; +VENTOLIN HFA [SP8 GM INH; +ZOFRAN ODT4 MG/UDTAB PO
== END | disposition home or self-care (01) ==
LOC: D.MRI 12:46
PROVIDERS: ATTEND Orthopaedic Surgery
DX: C80.0 Disseminated malignant neoplasm, unspecified (principal)